=== PATIENT | female | born 1955 | race Two or more races ===

== ENCOUNTER → 2017-10-03 | Outpatient (CLI) | payer BC ==
[2017-10-03 15:40] LABS: BARBITURATES NEG (NEG); BENZODIAZEPINES NEG (NEG); CANNABINOIDS POS (NEG); COCAINE NEG (NEG); METHADONE NEG (NEG); OPIATES NEG (NEG); PHENCYCLIDINE NEG (NEG)
[2017-10-03 15:42] LABS: AMPHETAMINE/METHAMPHETAMINE NEG (NEG); ETHANOL, URINE NEG (NEG)
[2017-10-03 15:54] LABS: THYROID STIM HORMONE (TSH) 2.569 uIU/mL (0.358-3.74)
[2017-10-03 15:55] LABS: VITAMIN-B12 388 pg/mL (247-911)
[2017-10-05 00:13] LABS: COPPER LEVEL 101 ug/dL (72-166)
== END | disposition home or self-care (01) ==
LOC: LAB 14:48
DX: R25.9 Unspecified abnormal involuntary movements (principal)
CPT/HCPCS: 80307; 82607; 84443

== ENCOUNTER → 2017-10-05 | Outpatient (CLI) | payer BC | END | disposition home or self-care (01) | LOC: RT 12:01 | DX: R25.9 Unspecified abnormal involuntary movements (principal) | CPT/HCPCS: 95816 ==

== ENCOUNTER → 2018-10-17 | Outpatient (CLI) | payer BC ==
[~2018-10-17] MED LIST: ACET325T9 PO; ESTR0.5T PO; GABA-585 PO; INSU100I13 SQ; LANS15CA78 PO; LEVO25TA4 PO; LINA5TAB PO; LOSA25TA54 PO; VENL37.56 PO
--- NOTE | 2018-10-17 16:00 | KCIC ---
EXAM: Left hand, 3 views. HISTORY: Pain and bruising. Fall. COMPARISON: None. FINDINGS: 3 views of the left hand are obtained. There is a displaced and angled limited fracture of the proximal fifth proximal phalanx. No additional fracture is seen. IMPRESSION: Displaced and angled fracture of the proximal fifth proximal phalanx. Electronically signed by: Ashwini Hinton MD (10/17/2018 3:57 PM) [email or web address]
== END | disposition home or self-care (01) ==
LOC: KCIC 15:00
PROVIDERS: ATTEND Nurse Practitioner Family
DX: S62.617A Displaced fracture of proximal phalanx of left little finger, initial encounter for closed fracture (principal); W19.XXXA Unspecified fall, initial encounter; Y93.89 Activity, other specified; Y92.89 Other specified places as the place of occurrence of the external cause; Y99.8 Other external cause status
CPT/HCPCS: 73130

== ENCOUNTER → 2020-03-27 | Outpatient (CLI) | payer OTHER ==
[~2020-03-27] MED LIST changes: +LABE300T2 PO; +TRAM50TA PO
== END ==
LOC: LAB 10:17
PROVIDERS: ATTEND Orthopaedic Surgery
DX: Z01.812 Encounter for preprocedural laboratory examination (principal); G56.01 Carpal tunnel syndrome, right upper limb; G56.03 Carpal tunnel syndrome, bilateral upper limbs; Z88.2 Allergy status to sulfonamides; Z88.0 Allergy status to penicillin; Z20.822 Contact with and (suspected) exposure to COVID-19
CPT/HCPCS: C9803; U0003

== ENCOUNTER 2020-03-31 08:44 | Day surgery (SDC) | payer BC, OTHER ==
[~2020-03-31] VITALS: Ht 160 cm; Wt 69.9 kg
[~2020-03-31 08:44] MED LIST changes: +HYDROmorphone 2 MG/ML VIAL IV PRN; +ISOFLURANE 61 TO 120 MINUTES. IH ONE; +ISOFLURANE > 120 MINUTES. IH ONE; +IV RINGERS,LACTATED 1000ML 1,000 ML IV SCH; +KETOROLAC 30 MG/ML VIAL. ONE; -LABE300T2 PO; +LIDOCAINE 1% PF 2 ML VIAL. ID PRN; +LIDOCAINE 2% PF 5 ML VIAL. ONE; +MORPHINE SULFATE 2 MG/ML VIAL. IV PRN; +ONDANSETRON PF 4 MG/2 ML VIAL. IV PRN; +PROCHLORPERAZINE 10 MG/2 ML VIAL. IV PRN; +PROPOFOL 10 MG/ML (20ML) VIAL. IV ONE; -TRAM50TA PO; +fentaNYL PF VIAL 100 MCG/2 ML VIAL IV PRN
[2020-03-31] MEDS ORDERED: fentaNYL PF VIAL 100 MCG/2 ML VIAL ONE (09:17)
[2020-03-31] MEDS ORDERED: LABE300T2 PO (09:20)
[2020-03-31] MEDS ORDERED: BUPIVACAINE MPF 0.25% 30 ML VIAL. ONE (09:21)
[2020-03-31] MEDS ORDERED: ceFAZolin SODIUM IV Push 1 GM VIAL. IVP PRN (10:00)
[2020-03-31] MEDS ORDERED: TRAM50TA PO (10:08)
--- NOTE | 2020-03-31 10:10 | DISCH ---
DISCHARGE INSTRUCTIONS Condition on Discharge Condition on Discharge: Stable Activity After Discharge Activity Instructions for Disc: Other, see below (Avoid hard grasp heavy li fting or pressure on incision, may do fine motor use such as eating writing typing without restriction) Diet after Discharge Diet after Discharge: Regular Wound Incision Care Wound/Incision Care: Keep wound elevated, Do not change dressing (Keep dressing clean and dry call if saturated) Contacting the after DC Call your doctor for: Concerns you may have Follow-Up Follow up with: Dr. Javier 10 days MARCELINO JAVIER MD Mar 31, 2020 10:10
[2020-03-31] MEDS ORDERED: traMADol 50 MG TABLET PO ONE (10:30)
--- NOTE | 2020-03-31 10:39 | PDOC4 ---
Operative Note Operative Note Date of surgery: 03/31/2020 Preoperative diagnosis: Right carpal tunnel syndrome Postoperative diagnosis: Same with moderate median nerve compression at the carpal tunnel Operative procedure: Right carpal tunnel release Surgeon: Yaya Anesthesia: General Estimated blood loss: 1 cc Complications: None Operative indications: Please see my orthopedic clinic note for detailed operative indications and note that the patient had paresthesia symptoms unresponsive to nonoperative management and confirmed by EMG testing which showed median nerve compression at the carpal tunnel. I had gone over with her the anatomy structure and function of the area of the rationale for carpal tunnel release as well as nonoperative treatment alternatives and the risks of possible nerve or blood vessel damage incisional tenderness infection medical or other anesthetic complications among others and the possibility of incomplete relief even if the pressure is relieved from the nerve. She wishes to proceed with surgical evaluation and treatment Operative text: Patient was identified procedure verified patient placed in the supine position on the operating table. After adequate amounts of general anesthesia was administered the right upper extremity was prepped and draped in standard sterile fashion and timeout was performed patient procedure identified and verified. The right upper extremity was exsanguinated by Esmarch bandage tourniquet inflated to 250 mmHg. A longitudinal incision was made just distal to the proximal wrist crease dissection carried out to the transverse carpal ligament which was sharply divided under direct vision and the proximal and distal extent of the transverse carpal ligament were divided completely under direct vision and complete release verified visually and palpably. Irrigation carried out normal saline solution closure accomplished with nylon suture. Sterile soft dressings were applied. Fingers were noted to be warm pink on deflation of the tourniquet and patient was returned to recovery room in stable condition having tolerated procedure well MARCELINO QUINTANA MD Mar 31, 2020 10:39
[2020-03-31 11:10] VITALS: BP 148/52
== END 2020-03-31 11:44 | disposition home or self-care (01) ==
LOC: SURG 08:44
PROVIDERS: ATTEND Orthopaedic Surgery
DX: G56.01 Carpal tunnel syndrome, right upper limb (principal); I12.9 Hypertensive chronic kidney disease with stage 1 through stage 4 chronic kidney disease, or unspecified chronic kidney disease; N18.9 Chronic kidney disease, unspecified; K21.9 Gastro-esophageal reflux disease without esophagitis; F41.9 Anxiety disorder, unspecified; F32.9 Major depressive disorder, single episode, unspecified; Z90.49 Acquired absence of other specified parts of digestive tract; Z90.710 Acquired absence of both cervix and uterus; Z98.890 Other specified postprocedural states; Z79.899 Other long term (current) drug therapy; Z88.8 Allergy status to other drugs, medicaments and biological substances
CPT/HCPCS: 64721; J0690; J2704; J3010; J3490; J1885